=== PATIENT | female | born 1970 | race Caucasian/White ===

== ENCOUNTER 2017-06-10 12:02 | Emergency (ER) | payer OTHER ==
[~2017-06-10] VITALS: Ht 162.5 cm; Wt 78.5 kg
[~2017-06-10 12:02] MED LIST: CLINDAMYCIN HC300 MG PO; MOTRIN400 MG PO; MOTRIN800 MG PO; NKHM; NORCO 325 MG-51 TAB PO; VICODIN 5/500 505 MG PO; ZOFRAN ODT4 MG SL; ZOFRAN4 MG PO
[2017-06-10 12:06] VITALS: BP 138/76
[2017-06-10] MEDS ORDERED: Motrin,Rufen800 MG PO (12:30)
[2017-06-10] MEDS ORDERED: CLINDAMYCIN HC300 MG PO (12:30)
== END 2017-06-10 12:31 | disposition home or self-care (01) ==
LOC: ED 12:02
DX: K08.89 Other specified disorders of teeth and supporting structures (principal); Z88.0 Allergy status to penicillin; Z88.5 Allergy status to narcotic agent

== ENCOUNTER 2018-05-17 14:17 | Emergency (ER) | payer OTHER ==
[~2018-05-17] VITALS: Ht 162.5 cm; Wt 69.9 kg
[~2018-05-17 14:17] MED LIST changes: +CLINDAMYCIN150 MG PO; +Motrin,Rufen800 MG PO; +NAPROSYN500 MG PO; +Peridex 473 ML473 ML PO
[2018-05-17 14:19] VITALS: BP 118/82
[2018-05-17] MEDS ORDERED: NAPROSYN500 MG PO (14:26)
[2018-05-17] MEDS ORDERED: TYLENOL325 M1 PO (14:26)
[2018-05-17] MEDS ORDERED: CLINDAMYCIN150 MG PO (14:26)
== END 2018-05-17 14:30 | disposition home or self-care (01) ==
LOC: ED 14:17
DX: K02.9 Dental caries, unspecified (principal); Z88.0 Allergy status to penicillin; Z88.6 Allergy status to analgesic agent

== ENCOUNTER 2019-09-20 18:58 | Emergency (ER) | payer SELFPAY ==
[~2019-09-20 18:58] MED LIST changes: +TYLENOL325 M1 PO
[2019-09-20 19:09] VITALS: BP 136/84
[2019-09-20] MEDS ORDERED: ZITHROMAX250 MG PO (20:03)
== END 2019-09-20 20:22 | disposition home or self-care (01) ==
LOC: ED 18:58
DX: J40 Bronchitis, not specified as acute or chronic (principal); Z88.0 Allergy status to penicillin; Z88.8 Allergy status to other drugs, medicaments and biological substances; Z79.899 Other long term (current) drug therapy

== ENCOUNTER 2021-01-30 13:59 | Emergency (ER) | payer OTHER ==
[~2021-01-30] VITALS: Ht 162.5 cm; Wt 79.4 kg
[~2021-01-30 13:59] MED LIST changes: +ZITHROMAX250 MG PO
[2021-01-30 14:06] VITALS: BP 150/108
[2021-01-30 15:41] LABS: BASO % 0.5 % (0.0-1.0); EOS % 0.3 % (1.0-4.0); HEMATOCRIT 42.8 % (37.0-47.0); LYMPH # 1.1 10*3/uL (1.3-4.4); LYMPH % 27.3 % (27.0-41.0); MEAN CELL VOLUME 91.3 fl (81.0-99.0); MEAN CORPUSCULAR HGB 31.3 pg (27.0-31.0); MEAN CORPUSCULAR HGB CONC 34.3 g/dl (33.0-37.0); MEAN PLATELET VOLUME 10.1 fl (9.6-12.3); MONO # 0.4 10*3/uL (0.1-1.0); MONO % 9.1 % (3.0-9.0); NEUT # 2.5 10*3/uL (2.3-7.9); NEUT % 62.5 % (47.0-73.0); PLATELET COUNT AUTOMATED 155 10*3/uL (130-400); RED BLOOD COUNT 4.69 10*6/uL (4.10-5.10); RED CELL DISTRI WIDTH 12.9 % (0-14.5)
[2021-01-30 15:57] LABS: ALBUMIN 3.5 gm/dl (3.1-4.5); ALKALINE PHOSPHATASE 100 U/L (45-117); BUN 13 mg/dl (7-24); CHLORIDE 106 mmol/L (98-107); CREATININE 0.84 mg/dL (0.55-1.02); LIPASE 140 U/L (73-393); POTASSIUM 3.9 mmol/L (3.5-5.1); SGOT/AST 25 IU/L (3-35); SGPT/ALT 33 U/L (12-78); SODIUM 138 mmol/L (136-145); TOTAL PROTEIN 7.6 gm/dL (6.4-8.2)
[2021-01-30] MEDS ORDERED: ZOFRAN4 MG PO ×2 (17:24→18:20)
[2021-01-30 17:40] LABS: BILIRUBIN Negative (Negative); BLOOD Negative (Negative); CLARITY Cloudy (Clear); COLOR Dark Yellow (Yellow); GLUCOSE Negative (Negative); KETONE 1+ (Negative); LEUKO ESTERASE Negative (Negative); NITRITE Negative (Negative); PH 5.5 (4.5-8.0); SPECIFIC GRAVITY 1.025 (1.001-1.030)
[2021-01-30 17:53] LABS: BACTERIA TRACE; MUCOUS 2+
[2021-01-30 17:54] LABS: RBC 0-2 rbc/hpf (0-2)
== END 2021-01-30 18:02 | disposition home or self-care (01) ==
LOC: ED 13:59
PROVIDERS: Physician Assistant
DX: A08.4 Viral intestinal infection, unspecified (principal); Z88.0 Allergy status to penicillin; Z88.6 Allergy status to analgesic agent

== ENCOUNTER 2021-10-15 09:02 | Emergency (ER) | payer OTHER ==
[~2021-10-15] VITALS: Wt 84.4 kg
[2021-10-15 09:06] VITALS: BP 158/98
[2021-10-15] MEDS ORDERED: CLEOCIN HCL150 MG PO (09:25)
== END 2021-10-15 09:29 | disposition home or self-care (01) ==
LOC: ED 09:02
DX: K08.89 Other specified disorders of teeth and supporting structures (principal); Z88.0 Allergy status to penicillin; Z88.8 Allergy status to other drugs, medicaments and biological substances; Z90.49 Acquired absence of other specified parts of digestive tract

== ENCOUNTER 2022-03-30 12:32 | Emergency (ER) | payer OTHER ==
[~2022-03-30] VITALS: Ht 162.5 cm; Wt 83.0 kg
[~2022-03-30 12:32] MED LIST changes: +CLEOCIN HCL150 MG PO
[2022-03-30 12:45] VITALS: BP 143/109
[2022-03-30] MEDS ORDERED: Motrin,Rufen800 MG PO (14:37)
[2022-03-30] MEDS ORDERED: CLINDAMYCIN HC300 MG PO (14:37)
== END 2022-03-30 14:51 | disposition home or self-care (01) ==
LOC: ED 12:32
DX: K08.89 Other specified disorders of teeth and supporting structures (principal); Z88.6 Allergy status to analgesic agent; Z88.5 Allergy status to narcotic agent; Z88.0 Allergy status to penicillin; Z98.890 Other specified postprocedural states

== ENCOUNTER 2022-07-08 16:52 | Emergency (ER) | payer MEDICAID ==
[~2022-07-08] VITALS: Ht 165.1 cm; Wt 83.9 kg
[2022-07-08 17:06] VITALS: BP 139/66
[2022-07-08] MEDS ORDERED: CLINDAMYCIN HC300 MG PO (17:13)
== END 2022-07-08 17:32 | disposition home or self-care (01) ==
LOC: ED 16:52
DX: K08.89 Other specified disorders of teeth and supporting structures (principal); Z88.0 Allergy status to penicillin; Z88.8 Allergy status to other drugs, medicaments and biological substances; Z90.49 Acquired absence of other specified parts of digestive tract; F17.200 Nicotine dependence, unspecified, uncomplicated

== ENCOUNTER 2022-09-07 14:47 | Emergency (ER) | payer MEDICAID ==
[~2022-09-07] VITALS: Ht 162.5 cm; Wt 74.8 kg
[2022-09-07 15:00] VITALS: BP 151/90
== END 2022-09-07 16:40 | disposition left against medical advice (07) ==
LOC: ED 14:47
DX: K08.89 Other specified disorders of teeth and supporting structures (principal); Z53.21 Procedure and treatment not carried out due to patient leaving prior to being seen by health care provider

== ENCOUNTER 2022-10-05 11:17 | Emergency (ER) | payer MEDICAID ==
[~2022-10-05] VITALS: Ht 154.9 cm; Wt 90.7 kg
[2022-10-05 11:43] VITALS: BP 162/100
[2022-10-05] MEDS ORDERED: CLINDAMYCIN HC300 MG PO (12:12)
[2022-10-05] MEDS ORDERED: PERCOCET 5-3251 EACH PO (12:12)
== END 2022-10-05 13:40 | disposition home or self-care (01) ==
LOC: ED 11:17
DX: K04.7 Periapical abscess without sinus (principal); Z88.6 Allergy status to analgesic agent; Z88.5 Allergy status to narcotic agent; Z88.0 Allergy status to penicillin; Z98.890 Other specified postprocedural states